=== PATIENT | male | born 1995 | race Hispanic/Latino ===

== ENCOUNTER 2024-03-19 03:04 | Emergency (ER) | payer SELFPAY ==
[2024-03-19 03:59] LABS: Absolute Basophils 0.1 K/uL (0-0.5); Absolute Lymphocytes (CBC) 0.8 K/uL (0.7-4.9); Absolute Monocytes 0.8 K/uL (0.1-1.3); Absolute Neutrophil 12.5 K/uL (1.8-8.0); Basophils % 0.4 % (0-1.3); Eosinophils % 0.1 % (0-4.4); Hematocrit 42.1 % (39.6-49.0); Hemoglobin 14.7 g/dL (13.6-17.9); MCH 27.9 pg (27.0-35.0); MCHC 34.9 g/dL (32.0-36.0); Monocytes % 5.6 % (3.3-12.3); Neutrophils % 87.9 % (41.7-73.7); Platelets 279 thou/uL (152-406); RBC Red Blood Cell Count 5.27 M/uL (4.33-5.43); Red Cell Distribution Width 13.6 % (12.1-15.2)
[2024-03-19 04:08] LABS: Specific Gravity > 1.030 (1.005-1.030); Sqamous Epithelial None Seen /HPF (None Seen); Urine Bacteria <20 /HPF (<20); Urine Bilirubin NEGATIVE (Negative); Urine Blood Trace (Negative); Urine Clarity Turbid (Clear); Urine Color Yellow (Yellow); Urine Culture Reflex Order NOT NEEDED; Urine Glucose NEGATIVE (Negative); Urine Ketones 4+ (Over) (Negative); Urine Microscopic Reflex YN ORDER UMIC; Urine Mucus 2+ /HPF (None Seen); Urine Nitrite NEGATIVE (Negative); Urine Protein 1+ (Negative); Urine RBC <5 /HPF (None Seen); Urine Urobilinogen 1+ (Normal); Urine WBC <5 /HPF (<5); Urine pH 5.5 (5.0-7.0)
[2024-03-19 04:14] LABS: Albumin/Globulin Ratio 1.2 (1.1-1.8); Anion Gap 11.4 mEq/L (5.0-15.0); Globulin 3.4 g/dL (2.3-3.5); Potassium 3.4 mEq/L (3.5-5.1); Protein, Total 7.4 g/dL (6.4-8.2)
[2024-03-19] MEDS ORDERED: ONDANSETRON 4 MG/2 ML VIAL ONE (04:20)
[2024-03-19] MEDS ORDERED: KETOROLAC 30 MG/ML INJ ONE (04:21)
[2024-03-19] MEDS ORDERED: NA CHLORIDE 0.9% 2,000 ML ONE (04:21)
[2024-03-19 05:00] LABS: Blood Morphology Comment NOT SEEN (NOT SEEN); Platelet Estimate ADEQ; White Blood Cell Scan OK (OK)
--- NOTE | 2024-03-19 07:55 | RAD REPORT ---
EXAM DESCRIPTION: US - Abdomen Exam Limited - 03/19/2024 7:12 am CLINICAL HISTORY: ABD PAIN COMPARISON: Abdomen Pelvis W Contrast dated 03/19/2024 TECHNIQUE: Sonographic grayscale and color flow images of the right upper abdominal quadrant were o btained. FINDINGS: Shadowing bowel gas somewhat limits evaluation. The gallbladder demonstrates no gallstones . No pericholecystic fluid or gallbladder wall thickening. The common bile duct is normal measuring 4 mm. The liver demonstrates no findings of intrahepatic biliary dilatation. IMPRESSION: No acute findings on right upper quadrant ultrasound.
--- NOTE | 2024-03-19 08:33 | ER ---
Nurse's Notes [facility] Name: Harry Martines Age: 29 yrs Sex: Male : 1995 Arrival Date: 03/19/2024 Time: 03:04 Bed 15 Private MD: Diagnosis: Abdominal pain, dehydration Presentation: 03/19 03:18 Chief complaint: Patient states: c/o RLQ pain since [id number] this morning. Coronavirus al5 screen: Client presents with at least one sign or symptom that may indicate coronavirus-19. Ebola Screen: No symptoms or risks identified at this time. Initial Sepsis Screen: Does the patient meet any 2 criteria? No. Patient's initial sepsis screen is negative. Does the patient have a suspected source of infection? No. Patient's initial sepsis screen is negative. Risk Assessment: Do you want to hurt yourself or someone else? Patient reports no desire to harm self or others. Onset of symptoms was March 19, 2024. 03:18 Method Of Arrival: Ambulatory al5 03:18 Acuity: ADAN 3 al5 Triage Assessment: 03:20 General: Appears in no apparent distress. uncomfortable, Behavior is calm, cooperative. al5 Pain: Complains of pain in right lower quadrant Pain radiates to abdomen diffusely Pain currently is 9 out of 10 on a pain scale. Quality of pain is described as stabbing, Pain began 1 hour ago. Is intermittent. EENT: No signs and/or symptoms were reported regarding the EENT system. Neuro: Level of Consciousness is awake, alert, obeys commands, Oriented to person, place, time, situation. Cardiovascular: Patient's skin is warm and dry. Respiratory: Airway is patent Respiratory effort is even, unlabored, Respiratory pattern is regular, symmetrical. GI: Abdomen is flat, non-distended, Reports lower abdominal pain. : Reports pain with urination. Derm: Skin is intact, Skin is pink, warm \T\ dry. normal. Musculoskeletal: No signs and/or symptoms reported regarding the musculoskeletal system. Historical: - Allergies: 03:19 No Known Allergies; al5 - PMHx: 03:19 None; al5 - PSHx: 03:19 None; al5 - Immunization history:: Adult Immunizations up to date. - Infectious Disease History:: Denies. - Social history:: Smoking status: Patient denies any tobacco usage or history of. - Family history:: not pertinent. Screenin:32 [facility] ED Fall Risk Assessment (Adult) History of falling in the last 3 months, kd4 including since admission No falls in past 3 months (0 pts) Confusion or Disorientation No (0 pts) Intoxicated or Sedated No (0 pts) Impaired Gait No (0 pts) Mobility Assist Device Used No (0 pt) Altered Elimination No (0 pt) Score/Fall Risk Level 0 - 2 = Low Risk Oriented to surroundings. Abuse screen: Denies threats or abuse. Nutritional screening: No deficits noted. Tuberculosis screening: No symptoms or risk factors identified. Assessment: 03:32 Pain: Complains of pain in abdomen Pain currently is 9 out of 10 on a pain scale. kd4 Neuro: No deficits noted. Respiratory: No deficits noted. Denies shortness of breath labored breathing. : Reports burning with urination, since 1 WEEK. 07:06 General: Report given to PARESH Evans . Patient went to [employer] for [employer]. kd4 07:15 General: Appears in no apparent distress. comfortable, well groomed, well developed, kc6 Behavior is calm, cooperative, appropriate for age. Pain: Denies pain. Neuro: Level of Consciousness is awake, alert, obeys commands, Oriented to person, place, time, situation, Appropriate for age. Cardiovascular: Capillary refill < 3 seconds. Respiratory: Airway is patent Trachea midline Respiratory effort is even, unlabored, Respiratory pattern is regular, symmetrical. GI: Abdomen is flat, non-distended, Bowel sounds present X 4 quads. Abd is soft X 4 quads Abdomen is tender to palpation in right lower quadrant Reports lower abdominal pain, Patient currently denies diarrhea, nausea, vomiting. : No signs and/or symptoms were reported regarding the genitourinary system. Urine is cloudy, Reports burning with urination. EENT: No signs and/or symptoms were reported regarding the EENT system. Derm: No signs and/or symptoms reported regarding the dermatologic system. Skin is intact, is healthy with good turgor, Skin is pink, warm \T\ dry. Musculoskeletal: No signs and/or symptoms reported regarding the musculoskeletal system. Circulation, motion, and sensation intact. Capillary refill < 3 seconds, Range of motion: intact in all extremities. 08:13 Reassessment: Patient appears in no apparent distress at this time. No changes from kc6 previously documented assessment. Patient and/or family updated on plan of care and expected duration. Pain level reassessed. Patient is alert, oriented x 3, equal unlabored respirations, skin warm/dry/pink. Vital Signs: 03:18 BP 124 / 73; Pulse 82; Resp 16; Temp 97.8; Pulse Ox 97% on R/A; Weight 95.25 kg; Height al5 5 ft. 10 in. ; Pain 9/10; 05:59 Pulse 74; Resp 18; Temp 98.4(O); Pulse Ox 100% on R/A; Pain 3/10; kd4 06:09 BP 104 / 55; kd4 07:40 BP 103 / 64; Pulse 70; Resp 16 S; Pulse Ox 98% on R/A; kc6 03:18 Body Mass Index 30.13 (95.25 kg, 177.8 cm) al5 03:18 Pain Scale: Adult al5 05:59 Pain Scale: Adult kd4 [place] Coma Score: 03:32 Eye Response: spontaneous(4). Motor Response: obeys commands(6). Verbal Response: kd4 oriented(5). Total: 15. 07:13 Eye Response: spontaneous(4). Motor Response: obeys commands(6). Verbal Response: sp4 oriented(5). Total: 15. ED Course: 03:07 Patient arrived in ED. jj6 03:15 Mary Ann Valentine RN is Primary Nurse. kd4 03:18 Juno Mata MD is Attending Physician. al5 03:19 Triage completed. al5 03:22 Arm band placed on right wrist. Patient placed in the treatment room, on a stretcher. al5 03:32 Patient has correct armband on for positive identification. Bed in low position. Call kd4 light in reach. 03:53 Initial lab(s) drawn, by me, sent to lab. Urine collected: clean catch specimen. kd4 Inserted saline lock: 20 gauge in right antecubital area, using aseptic technique. 04:49 CT Abd/Pelvis - IV Contrast Only In Process Unspecified. EDMS 07:00 Report received from Mary Ann Valentine RN. kc6 07:00 Pulse ox on. NIBP on. Door closed. Noise minimized. Lights dimmed. Warm blanket given. kc6 Pillow given. 07:05 Attending Physician role handed off by Juno Mata MD sp3 07:05 Ray Scott MD is Attending Physician. sp3 07:14 Abdomen Limited In Process Unspecified. EDMS 08:40 No provider procedures requiring assistance completed. IV discontinued, intact, kc6 bleeding controlled, No redness/swelling at site. Pressure dressing applied. Administered Medications: 04:26 Drug: Ketorolac IVP 30 mg IVP once Route: IVP; Site: right antecubital; kd4 04:39 Follow up: Response: No adverse reaction kd4 04:26 Drug: Ondansetron IVP 4 mg IVP once; over 2 minutes Route: IVP; Site: right antecubital;kd4 04:38 Follow up: Response: No adverse reaction kd4 04:26 Drug: NS 0.9% IV 1000 ml IV at 1 bolus Per protocol; 1000 mL bolus Route: IV; Rate: 1 kd4 bolus; Site: right antecubital; 08:14 Follow up: Response: No adverse reaction; IV Status: Completed infusion; IV Intake: kc6 1000ml 04:38 Drug: NS 0.9% IV 1000 ml IV at 125 ml/hr continuous Route: IV; Rate: 125 ml/hr; Site: kd4 right antecubital; Medication: 03:32 VIS not applicable for this client. kd4 Intake: 08:14 IV: 1000ml; Total: 1000ml. kc6 Outcome: 08:32 Discharge ordered by . sp3 08:40 Discharged to home ambulatory, kc6 08:40 Condition: good 08:40 Discharge instructions given to patient, Instructed on discharge instructions, follow up and referral plans. medication usage, Demonstrated understanding of instructions, follow-up care, medications, Prescriptions given X 1, 08:41 Patient left the ED. kc6 Signatures: Dispatcher [employer] EDNC Ray Scott MD MD sp3 Ladonna Lepe6 Kimber Bravo RN RN kc6 Juno Mata MD MD sp4 Mary Ann Valentine RN RN kd4 Katerine Ortez RN RN al5 Corrections: (The following items were deleted from the chart) 03:20 03:19 PSHx: Unable to Obtain; al5 al5 03: 03:20 General: Appears in no apparent distress. uncomfortable, Behavior is calm, al5 cooperative, al5 03: 03:20 Pain: Complains of pain in right lower quadrant Pain radiates to abdomen al5 diffusely Pain currently is 6 out of 10 on a pain scale. al5
--- NOTE | 2024-03-19 08:33 | EDPHYS ---
Physician Documentation [facility] Name: Harry Martines Age: 29 yrs Sex: Male : 1995 Arrival Date: 03/19/2024 Time: 03:04 Bed 15 Private MD: ED Physician Ray Scott HPI: 03/19 03:32 This 29 yrs old Male presents to ER via Ambulatory with complaints of sp4 Abdominal Pain. 07:13 29-year-old male presents with acute onset of the right flank and right abdominal pain sp4 associated with nausea.. Historical: - Allergies: 03:19 No Known Allergies; al5 - PMHx: 03:19 None; al5 - PSHx: 03:19 None; al5 - Immunization history:: Adult Immunizations up to date. - Infectious Disease History:: Denies. - Social history:: Smoking status: Patient denies any tobacco usage or history of. - Family history:: not pertinent. ROS: 07:13 Constitutional: Negative for fever, chills, and weight loss, positive right flank pain sp4 the right abdominal pain 07:13 All other systems are negative, Exam: 07:13 Constitutional: This is a well developed, well nourished patient who is awake, alert, sp4 and in no acute distress. Head/Face: Normocephalic, atraumatic. Eyes: Pupils equal round and reactive to light, extra-ocular motions intact. Lids and lashes normal. Conjunctiva and sclera are not injected. Cornea within normal limits. Periorbital areas with no swelling, redness, or edema. ENT: Nares patent. No nasal discharge, no septal abnormalities noted. Tympanic membranes are normal and external auditory canals are clear. Oropharynx with no redness, swelling, or masses, exudates, or evidence of obstruction, uvula midline. Mucous membranes moist. Neck: Trachea midline, no thyromegaly or masses palpated, and no cervical lymphadenopathy. Supple, full range of motion without nuchal rigidity, or vertebral point tenderness. Chest/axilla: Normal chest wall appearance and motion. Nontender with no deformity. No lesions are appreciated. Cardiovascular: Regular rate and rhythm with a normal S1 and S2. No gallops, murmurs, or rubs. Normal PMI, no JVD. No pulse deficits. Respiratory: Lungs have equal breath sounds bilaterally, clear to auscultation and percussion. No rales, rhonchi or wheezes noted. No increased work of breathing, no retractions or nasal flaring. Abdomen/GI: Soft, with normal bowel sounds. No distension or tympany. No guarding or rebound. No evidence of tenderness throughout. Back: No spinal tenderness. No costovertebral tenderness. Skin: Warm, dry with normal turgor. Normal color with no rashes, no lesions, and no evidence of cellulitis. MS/ Extremity: Pulses equal, no cyanosis. Neurovascular intact. Full, normal range of motion. Neuro: Awake and alert, GCS 15, oriented to person, place, time, and situation. Cranial nerves II-XII grossly intact. Motor strength 5/5 in all extremities. Sensory grossly intact. Psych: Awake, alert, with orientation to person, place and time. Behavior, mood, and affect are within normal limits Vital Signs: 03:18 BP 124 / 73; Pulse 82; Resp 16; Temp 97.8; Pulse Ox 97% on R/A; Weight 95.25 kg; Height al5 5 ft. 10 in. ; Pain 9/10; 05:59 Pulse 74; Resp 18; Temp 98.4(O); Pulse Ox 100% on R/A; Pain 3/10; kd4 06:09 BP 104 / 55; kd4 07:40 BP 103 / 64; Pulse 70; Resp 16 S; Pulse Ox 98% on R/A; kc6 03:18 Body Mass Index 30.13 (95.25 kg, 177.8 cm) al5 03:18 Pain Scale: Adult al5 05:59 Pain Scale: Adult kd4 [place] Coma Score: 03:32 Eye Response: spontaneous(4). Motor Response: obeys commands(6). Verbal Response: kd4 oriented(5). Total: 15. 07:13 Eye Response: spontaneous(4). Motor Response: obeys commands(6). Verbal Response: sp4 oriented(5). Total: 15. MDM: 03:19 Patient medically screened. sp4 06:45 ED course: CLINICAL HISTORY: Abdominal pain. COMPARISON: None. TECHNIQUE: CTABDOMEN sp4 PELVIS WITH IV CONTRAST on 03/19/2024 4:10 AM CDT This exam was performed according to our departmental dose-optimization program, which includes automated exposure control, adjustment of the mA and/or kV according to patient size and/or use of iterative reconstruction technique. FINDINGS: Lower lungs are clear. Abdomen: The liver is normal in appearance. There is no biliary dilatation. Gallbladder is normal in appearance. The pancreas and spleen are normal in appearance. There is an indeterminate left adrenal nodule measuring 11 mm. Right adrenal gland and both kidneys are normal. Abdominal aorta is normal in course and caliber without aneurysm. There is no free air. There is no retroperitoneal adenopathy. Pelvis: There is no bowel obstruction. Urinary bladder is unremarkable. There is no free fluid. Appendix is normal. Skeleton: There are no acute osseous findings. No suspicious bony lesions. IMPRESSION: No acute process. Indeterminate but likely benign left adrenal nodule. Consider nonemergent MRI.. 06:52 ED course: CLINICAL HISTORY: Abdominal pain. COMPARISON: None. TECHNIQUE: CTABDOMEN sp4 PELVIS WITH IV CONTRAST on 03/19/2024 4:10 AM CDT This exam was performed according to our departmental dose-optimization program, which includes automated exposure control, adjustment of the mA and/or kV according to patient size and/or use of iterative reconstruction technique. FINDINGS: Lower lungs are clear. Abdomen: The liver is normal in appearance. There is no biliary dilatation. Gallbladder is normal in appearance. The pancreas and spleen are normal in appearance. There is an indeterminate left adrenal nodule measuring 11 mm. Right adrenal gland and both kidneys are normal. Abdominal aorta is normal in course and caliber without aneurysm. There is no free air. There is no retroperitoneal adenopathy. Pelvis: There is no bowel obstruction. Urinary bladder is unremarkable. There is no free fluid. Appendix is normal. Skeleton: There are no acute osseous findings. No suspicious bony lesions. IMPRESSION: No acute process. Indeterminate but likely benign left adrenal nodule. Consider nonemergent MRI. . 07:13 Differential diagnosis: appendicitis, Cholelithiasis, diverticulitis, gastritis. Data sp4 reviewed: vital signs, nurses notes, lab test result(s), radiologic studies, CT scan. Consideration of Admission/Observation Escalation of care including admission/observation considered. 07:17 Transition of care: After a detail discussion of the patient's case, care is sp4 transferred to Ray Scott MD. 07:57 ED course: Patient signed out to me by nighttime physician. Patient is a 29-year-old sp3 male with no past medical history presents with right-sided abdominal pain. Laboratory values demonstrate mild increase in LFTs without increase in bilirubin or lipase. CT scan of the abdomen demonstrates no significant abnormality. Ultrasound is pending for right upper quadrant. If workup negative, we will safely discharge patient home. Patient was also dehydrated with 4+ ketones and potassium 3.4. Patient had received 2 L of normal saline and now feels significantly better. Vital signs continue to be normal.. 08:30 ED course: Ultrasound also negative at this time. Patient's vital signs remain normal. sp3 We will safely discharge home at this time. 03/19 03:32 Order name: CBC with Diff; Complete Time: 06:45 sp4 03/19 03:32 Order name: CMP; Complete Time: 06:45 sp4 03/19 03:32 Order name: Lipase; Complete Time: 06:45 sp4 03/19 03:32 Order name: Urinalysis w/ reflexes; Complete Time: 04:11 sp4 03/19 05:01 Order name: CBC Smear Scan; Complete Time: 06:45 EDMS 03/19 04:10 Order name: CT Abd/Pelvis - IV Contrast Only sp4 03/19 06:52 Order name: US Abdomen Limited; Complete Time: 08:30 sp4 03/19 03:32 Order name: IV Saline Lock; Complete Time: 03:53 sp4 03/19 03:32 Order name: Labs collected and sent; Complete Time: 03:53 sp4 Administered Medications: 04:26 Drug: Ketorolac IVP 30 mg IVP once Route: IVP; Site: right antecubital; kd4 04:39 Follow up: Response: No adverse reaction kd4 04:26 Drug: Ondansetron IVP 4 mg IVP once; over 2 minutes Route: IVP; Site: right antecubital;kd4 04:38 Follow up: Response: No adverse reaction kd4 04:26 Drug: NS 0.9% IV 1000 ml IV at 1 bolus Per protocol; 1000 mL bolus Route: IV; Rate: 1 kd4 bolus; Site: right antecubital; 08:14 Follow up: Response: No adverse reaction; IV Status: Completed infusion; IV Intake: kc6 1000ml 04:38 Drug: NS 0.9% IV 1000 ml IV at 125 ml/hr continuous Route: IV; Rate: 125 ml/hr; Site: kd4 right antecubital; Disposition Summary: 03/19/24 08:32 Discharge Ordered Notes: Location: Home sp3 Condition: Stable sp3 Diagnosis - Abdominal pain, dehydration sp3 Followup: sp3 - With: Private Physician - When: Upon discharge from the Emergency Department - Reason: Continuance of care Discharge Instructions: - Discharge Summary Sheet sp3 - Abdominal Pain, Adult sp3 - Dehydration, Adult sp3 Forms: - Medication Reconciliation Form sp3 - Antibiotic Education sp3 - Prescription Opioid Use sp3 - Patient Portal Instructions sp3 - Leadership Thank You Letter sp3 - Work release form kc6 Prescriptions: - Tramadol 50 mg Oral Tablet - take 1 tablet ORAL route every 8 hours as needed; 12 tablet; Refills: 0, sp3 Product Selection Permitted Signatures: Dispatcher [employer] EDRay Winkler MD MD sp3 Juno Mata MD MD sp4 Mary Ann Valentine RN RN kd4 Katerine Ortez RN RN al5 Kimber Bravo RN kc6 Corrections: (The following items were deleted from the chart) 03:20 03:19 PSHx: Unable to Obtain; francisca espinosa
[2024-03-19 09:02] VITALS: TEMP 98.4
[2024-03-19 09:05] VITALS: BP 103/64; O2SAT 98
--- NOTE | 2024-03-19 19:33 | RAD REPORT ---
EXAM DESCRIPTION: CT - Abdomen Pelvis W Contrast - 03/19/2024 4:47 am CLINICAL HISTORY: Abdominal pain. COMPARISON: None. TECHNIQUE: CT ABDOMEN PELVIS WITH IV CONTRAST on 03/19/2024 4:10 AM CDT This exam was performed according to our departmental dose-optimization program, which includes autom ated exposure control, adjustment of the mA and/or kV according to patient size and/or use of iterati ve reconstruction technique. FINDINGS: Lower lungs are clear. Abdomen: The liver is normal in appearance. There is no biliary dilatation. Gallbladder is normal in appearance. The pancreas and spleen are normal in appearance. There is an indeterminate left adrenal nodule measuring 11 mm. Right adrenal gland and both kidneys are normal. Abdominal aorta is normal in course and caliber without aneurysm. There is no free air. There is no r etroperitoneal adenopathy. Pelvis: There is no bowel obstruction. Urinary bladder is unremarkable. There is no free fluid. Appen angeles is normal. Skeleton: There are no acute osseous findings. No suspicious bony lesions. IMPRESSION: No acute process. Indeterminate but likely benign left adrenal nodule. Consider nonemergent MRI. Electronically signed by: Hung Hayes MD 03/19/2024 06:41 AM CDT RP Due to temporary technical issues with the PACS/Fluency reporting system, reports are being signed by the in house radiologists without review as a courtesy to insure prompt reporting. The interpreting radiologist is fully responsible for the content of the report.
== END 2024-03-19 08:41 | disposition home or self-care (01) ==
LOC: ER 03:04
DX: R10.31 Right lower quadrant pain (principal); E86.0 Dehydration; R11.0 Nausea; Z11.52 Encounter for screening for COVID-19
CPT/HCPCS: 36415; 74177; 76705; 80053; 81001; 83690; 85025; J2405; J7030; Q9967

== ENCOUNTER 2024-03-19 16:26 | Inpatient (IN) | payer SELFPAY ==
[2024-03-19] MEDS ORDERED: NA CHLORIDE 0.9% 1,000 ML ONE (16:45)
[2024-03-19] MEDS ORDERED: ONDANSETRON 4 MG/2 ML VIAL ONE ×2 (16:45→20:28)
[2024-03-19 17:03] LABS: Absolute Lymphocytes (CBC) 0.6 K/uL (0.7-4.9); Absolute Monocytes 1.3 K/uL (0.1-1.3); Absolute Neutrophil 15.5 K/uL (1.8-8.0); Basophils % 0.1 % (0-1.3); Hematocrit 41.1 % (39.6-49.0); Hemoglobin 14.3 g/dL (13.6-17.9); Lymphocytes % 3.2 % (15.3-44.8); MCH 28.2 pg (27.0-35.0); MCHC 34.9 g/dL (32.0-36.0); MCV 80.9 fL (80-100); MPV 7.5 fL (7.6-11.3); Monocytes % 7.4 % (3.3-12.3); Neutrophils % 89.3 % (41.7-73.7); Nucleated Red Blood Cells % 0.1 % (0-0); Platelets 302 thou/uL (152-406); RBC Red Blood Cell Count 5.08 M/uL (4.33-5.43); Red Cell Distribution Width 13.2 % (12.1-15.2)
[2024-03-19 17:21] LABS: Albumin 3.7 g/dL (3.4-5.0); Anion Gap 12.3 mEq/L (5.0-15.0); Bilirubin Total 1.1 mg/dL (0.2-1.0); Globulin 3.6 g/dL (2.3-3.5); Potassium 3.3 mEq/L (3.5-5.1); Protein, Total 7.3 g/dL (6.4-8.2)
[2024-03-19 17:35] LABS: SARS-CoV-2 Antigen CONTROL BLUE LINE VIS/BG OK; SARS-CoV-2 Antigen Rapid Res Negative (Negative)
--- NOTE | 2024-03-19 17:43 | RAD REPORT ---
EXAM DESCRIPTION: CT - Stone Protocol - 03/19/2024 5:17 pm CLINICAL HISTORY: Abdominal pain. Right flank pain COMPARISON: March 19, 2024 TECHNIQUE: Computed axial tomography of the abdomen pelvis was obtained without oral or IV contrast. Lack of IV and oral contrast limits evaluation of solid organs, appendix, bowel, and vessels. Lozano l reformatted images were obtained and reviewed. All CT scans are performed using dose optimization technique as appropriate and may include automated exposure control or mA/KV adjustment according to patient size. FINDINGS: A renal calculus is not seen. An ureteral calculus is not noted. A bladder calculus is not present. The liver, spleen, pancreas and right adrenal gland are unremarkable 12 millimeter left adrenal nodule. Hounsfield unit 6. This is compatible with an adenoma. No follow-u p imaging recommended There is no evidence of diverticulitis. The appendix is mildly enlarged with mild stranding in adjacent fat. It contains a couple ol appendic oliths. No abscess. No free air The appendix extends inferiorly from cecum. IMPRESSION: Appendicitis
[2024-03-19 17:55] LABS: Sqamous Epithelial None Seen /HPF (None Seen); Urine Bacteria None Seen /HPF (<20); Urine Bilirubin NEGATIVE (Negative); Urine Blood Negative (Negative); Urine Clarity Clear (Clear); Urine Color Yellow (Yellow); Urine Culture Reflex Order NOT NEEDED; Urine Glucose NEGATIVE (Negative); Urine Ketones NEGATIVE (Negative); Urine Microscopic Reflex YN ORDER UMIC; Urine Mucus Slight /HPF (None Seen); Urine Nitrite NEGATIVE (Negative); Urine Protein TRACE (Negative); Urine RBC <5 /HPF (None Seen); Urine Urobilinogen 2+ (Normal); Urine WBC <5 /HPF (<5); Urine pH 6.5 (5.0-7.0)
--- NOTE | 2024-03-19 17:58 | EDPHYS ---
Physician Documentation [facility] Name: Harry Martines Age: 29 yrs Sex: Male : 1995 Arrival Date: 03/19/2024 Time: 16:26 Bed 20 Private MD: ED Physician Efrain Chavez HPI: 03/19 16:36 This 29 yrs old Male presents to ER via Ambulatory with complaints of Fever - kb Side pain. 16:36 Pt is a 29 year old male who presents for dysuria for 2-3 weeks and right flank/abd kb pain that started at 0300 today. Reports nausea and subjective fever. Denies vomiting, diarrhea. No aggravating or alleviating factors. Historical: - Allergies: 16:35 No Known Allergies; dd2 - Home Meds: 16:35 None [Active]; dd2 - PMHx: 16:35 None; dd2 - PSHx: 16:35 None; dd2 - Immunization history:: Adult Immunizations unknown. - Infectious Disease History:: Denies. - Social history:: Smoking status: Patient denies any tobacco usage or history of. ROS: 16:36 Constitutional: As per HPI kb Exam: 16:36 Constitutional: This is a well developed, well nourished patient who is awake, alert, kb and in no acute distress. Head/Face: Normocephalic, atraumatic. ENT: Moist Mucous membranes Cardiovascular: Regular rate Respiratory: Respirations even and unlabored. No increased work of breathing. Talking in full sentences Back: No spinal tenderness. No costovertebral tenderness. Full range of motion. Skin: Warm, dry with normal turgor. Normal color. MS/ Extremity: Pulses equal, no cyanosis. Neurovascular intact. Full, normal range of motion. Neuro: Awake and alert, GCS 15, oriented to person, place, time, and situation. Moves all extremities. Normal gait. 16:36 Abdomen/GI: Inspection: abdomen appears normal, Bowel sounds: normal, Palpation: soft, in all quadrants, mild abdominal tenderness, in the anterior aspect of right lateral abdomen and right lower quadrant, Vital Signs: 16:32 BP 115 / 69; Pulse 131; Resp 17; Temp 99; Pulse Ox 97% ; Weight 96.16 kg; Height 5 ft. dd2 10 in. ; 17:00 BP 129 / 73; Pulse 100; Resp 18; Pulse Ox 98% on R/A; ph 18:00 BP 114 / 76; Pulse 97; Resp 18; Temp 98.9; Pulse Ox 99% on R/A; ph 16:32 Body Mass Index 30.42 (96.16 kg, 177.8 cm) dd2 MDM: 16:30 Patient medically screened. kb 16:37 Data reviewed: vital signs, nurses notes. kb 17:52 Management of patient was discussed with the following: Celso michelle. kb 18:00 Differential diagnosis: cholelithiasis, kidney stone, UTI, pyelonephritis, kb appendicitis. Consideration of Admission/Observation Patient was admitted/placed on observation. Escalation of care including admission/observation considered. Management of patient was discussed with the following: Child Care Director: Dr Houston accepts pt for admission. Will take to OR now. Keep NPO, start antibiotics and call out OR crew. Automatic Winder Operator notified to call out crew. External Records Reviewed: ED record from this morning reviewed. Counseling: I had a detailed discussion with the patient and/or guardian regarding the historical points, exam findings, and any diagnostic results supporting the discharge/admit diagnosis, lab results, radiology results, the need for further work-up and treatment in the hospital. 03/19 16:33 Order name: CBC with Diff kb 03/19 16:33 Order name: CMP; Complete Time: 17:26 kb 03/19 16:33 Order name: Lipase; Complete Time: 17:26 kb 03/19 16:33 Order name: Urinalysis w/ reflexes; Complete Time: 17:56 kb 03/19 16:34 Order name: SARS-COV-2 Antigen Rapid; Complete Time: 17:38 kb 03/19 17:09 Order name: CBC Smear Scan EDMS 03/19 17:56 Order name: Blood Culture Adult (2) kb 03/19 17:56 Order name: Lactate w/ 2H reflex if indic.; Complete Time: 19:07 kb 03/19 17:56 Order name: Protime (+inr); Complete Time: 18:51 kb 03/19 17:56 Order name: Ptt, Activated; Complete Time: 18:51 kb 03/19 16:34 Order name: CT Stone Protocol; Complete Time: 17:44 kb 03/19 16:33 Order name: IV Saline Lock; Complete Time: 17:00 kb 03/19 16:33 Order name: Labs collected and sent; Complete Time: 17:00 kb 03/19 17:56 Order name: EKG - Nurse/Tech; Complete Time: 18:50 kb Administered Medications: 17:00 Drug: NS 0.9% IV 1000 ml IV at 1 bolus Per protocol; 1000 mL bolus Route: IV; Rate: 1 ph bolus; Site: right antecubital; 18:30 Follow up: Response: No adverse reaction; IV Status: Completed infusion; IV Intake: ph 1000ml 17:01 Drug: Ondansetron IVP 4 mg IVP once; over 2 minutes Route: IVP; Site: right antecubital;ph 18:50 Follow up: Response: No adverse reaction ph 18:41 Drug: Piperacillin-Tazobactam IVPB 3.375 grams IVPB once over 60 mins; (mix in NS 100 ph mL), administer after blood cultures obtained Route: IVPB; Infused Over: 60 mins; Site: right antecubital; 18:50 Follow up: Response: No adverse reaction; IV Status: Infusion continued upon admission ph Disposition Summary: 03/19/24 17:57 Hospitalization Ordered Notes: Hospitalization Status: Observation kb Provider: Lizandro Houston Location: Telemetry/MedSurg (observation) kb Condition: Stable kb Problem: new kb Symptoms: are unchanged kb Bed/Room Type: Standard Room Assignment: 210(03/19/24 18:25) bd Diagnosis - Unspecified acute appendicitis kb Forms: - Medication Reconciliation Form kb - SBAR form kb - Leadership Thank You Letter kb Signatures: Dispatcher [employer] EDAidee Nice FNP-Geneva HAYSP-Allyson Chavez Patricia, RN RN ph SANDRA TRAN, RN RN dd2 Corrections: (The following items were deleted from the chart) 16:35 16:35 SARS-COV-2 Antigen Rapid+I.LAB.BRZ ordered. EDMS EDMS 17:56 17:56 BLOOD CULTURE*+BA.LAB.BRZ ordered. EDMS EDMS 17:56 17:56 LACTATE+C.LAB.BRZ ordered. EDMS EDMS 17:56 17:56 PROTIME (+INR)+COAG.LAB.BRZ ordered. EDMS EDMS 17:56 17:56 PTT, ACTIVATED+COAG.JAZ.BRZ ordered. EDMS EDMS 18:25 17:57 kb bd
--- NOTE | 2024-03-19 17:58 | ER ---
Nurse's Notes [facility] Name: Harry Martines Age: 29 yrs Sex: Male : 1995 Arrival Date: 03/19/2024 Time: 16:26 Bed 20 Private MD: Diagnosis: Unspecified acute appendicitis Presentation: 03/19 16:32 Chief complaint: Patient states: Pt states burning and painful urination 2-3 weeks, dd2 abdominal and rt flank pain x1 day with nausea. Coronavirus screen: At this time, the client does not indicate any symptoms associated with coronavirus-19. Ebola Screen: No symptoms or risks identified at this time. Initial Sepsis Screen: Does the patient meet any 2 criteria? No. Patient's initial sepsis screen is negative. Does the patient have a suspected source of infection? No. Patient's initial sepsis screen is negative. Risk Assessment: Do you want to hurt yourself or someone else? Patient reports no desire to harm self or others. Onset of symptoms is unknown. 16:32 Method Of Arrival: Ambulatory dd2 16:32 Acuity: ADAN 3 dd2 Triage Assessment: 16:35 General: Appears uncomfortable, ill, Behavior is calm, cooperative. Pain: Complains of dd2 pain in anterior aspect of right lateral abdomen and abdomen. Historical: - Allergies: 16:35 No Known Allergies; dd2 - Home Meds: 16:35 None [Active]; dd2 - PMHx: 16:35 None; dd2 - PSHx: 16:35 None; dd2 - Immunization history:: Adult Immunizations unknown. - Infectious Disease History:: Denies. - Social history:: Smoking status: Patient denies any tobacco usage or history of. Screenin:[facility] ED Fall Risk Assessment (Adult) History of falling in the last 3 months, ph including since admission No falls in past 3 months (0 pts) Confusion or Disorientation No (0 pts) Intoxicated or Sedated No (0 pts) Impaired Gait No (0 pts) Mobility Assist Device Used No (0 pt) Altered Elimination No (0 pt) Score/Fall Risk Level 0 - 2 = Low Risk Oriented to surroundings, Maintained a safe environment, Hourly rounding (assess needs \T\ fall precautionary measures) done. Abuse screen: Denies threats or abuse. Denies injuries from another. Nutritional screening: No deficits noted. Tuberculosis screening: No symptoms or risk factors identified. Assessment: 16:59 General: Appears in no apparent distress. Behavior is calm, cooperative. Pain: ph Complains of pain in epigastric area and anterior aspect of right lateral abdomen. Neuro: Level of Consciousness is awake, alert, obeys commands, Oriented to person, place, time, situation. Cardiovascular: Capillary refill < 3 seconds in bilateral fingers Patient's skin is warm and dry. Respiratory: Airway is patent Respiratory effort is even, unlabored, Respiratory pattern is regular, symmetrical. GI: Reports lower abdominal pain, upper abdominal pain, nausea. Derm: Skin is pink, warm \T\ dry. Vital Signs: 16:32 BP 115 / 69; Pulse 131; Resp 17; Temp 99; Pulse Ox 97% ; Weight 96.16 kg; Height 5 ft. dd2 10 in. ; 17:00 BP 129 / 73; Pulse 100; Resp 18; Pulse Ox 98% on R/A; ph 18:00 BP 114 / 76; Pulse 97; Resp 18; Temp 98.9; Pulse Ox 99% on R/A; ph 16:32 Body Mass Index 30.42 (96.16 kg, 177.8 cm) dd2 ED Course: 16:29 Patient arrived in ED. ra3 16:29 [facility] Latham [facility] kb 16:29 Efrain Chavez MD is Attending Physician. kb 16:35 Triage completed. dd2 16:35 Arm band placed on right wrist. Patient placed in an exam room, on a stretcher, on dd2 pulse oximetry. 16:43 Amber Joe, PARESH is Primary Nurse. ph 16:58 Initial lab(s) drawn, by ms, sent to lab. Urine collected: clean catch specimen, roula ph colored, COVID swab sent to lab. Inserted saline lock: 20 gauge in right antecubital area, using aseptic technique. Blood collected. Flushed with 10 mL NS. 17:00 Patient has correct armband on for positive identification. Bed in low position. Call ph light in reach. Side rails up X 1. Pulse ox on. NIBP on. Door closed. Noise minimized. 17:00 SARS-COV-2 Antigen Rapid Sent. ph 17:00 CBC with Diff Sent. ph 17:00 CMP Sent. ph 17:00 Lipase Sent. ph 17:00 Urinalysis w/ reflexes Sent. ph 17:19 CT Stone Protocol In Process Unspecified. EDMS 17:57 Lizandro Houston MD is Hospitalizing Provider. kb 18:49 No provider procedures requiring assistance completed. Patient admitted, IV remains in ph place. Administered Medications: 17:00 Drug: NS 0.9% IV 1000 ml IV at 1 bolus Per protocol; 1000 mL bolus Route: IV; Rate: 1 ph bolus; Site: right antecubital; 18:30 Follow up: Response: No adverse reaction; IV Status: Completed infusion; IV Intake: ph 1000ml 17:01 Drug: Ondansetron IVP 4 mg IVP once; over 2 minutes Route: IVP; Site: right antecubital;ph 18:50 Follow up: Response: No adverse reaction ph 18:41 Drug: Piperacillin-Tazobactam IVPB 3.375 grams IVPB once over 60 mins; (mix in NS 100 ph mL), administer after blood cultures obtained Route: IVPB; Infused Over: 60 mins; Site: right antecubital; 18:50 Follow up: Response: No adverse reaction; IV Status: Infusion continued upon admission ph Medication: 17:00 VIS not applicable for this client. ph Intake: 18:30 IV: 1000ml; Total: 1000ml. ph Outcome: 17:57 Decision to Hospitalize by Provider. kb 19:19 Patient left the ED. [id number] Signatures: Dispatcher [employer] EDWA Aidee Latham, SHARON WARD-Amber Mills RN RN ph Reddick, Jess jr12 Denise Haas ra3 SANDRA TRAN RN RN dd2
[2024-03-19] MEDS ORDERED: NA CHLORIDE 0.9% 100 ML ONE (18:29)
[2024-03-19] MEDS ORDERED: PIPERACIL/TAZO 3.375 GM VIAL IV ONE (18:30)
[2024-03-19 18:49] LABS: PTT, Activated Partial Thromb 30.2 SECONDS (24.3-36.9); Protime INR 1.35
[2024-03-19] MEDS: BUPIVACAINE 0.5% PF 10 ML VIAL ONE (18:58)
[2024-03-19 19:09] LABS: Blood Morphology Comment NOT SEEN (NOT SEEN); Platelet Estimate ADEQ; White Blood Cell Scan OK (OK)
[2024-03-19] MEDS: Ringers Lactate 1,000 ML IV ONE ×2 (19:20→20:45)
[2024-03-19] MEDS ORDERED: SUCCINYLCHOLINE 20 MG/ML (10 ML) IV ONE (19:23)
[2024-03-19] MEDS ORDERED: propofoL 200 MG/20 ML VIAL IV ONE (19:30)
[2024-03-19] MEDS ORDERED: FENTANYL CITR 250 MCG/5 ML ONE (19:30)
[2024-03-19] MEDS ORDERED: ROCURONIUM 50 MG/5 ML VIAL IV ONE (19:31)
[2024-03-19] MEDS ORDERED: MIDAZOLAM HCL 2 MG/2 ML INJ ONE (19:31)
--- NOTE | 2024-03-19 19:35 | P.HP ---
Date of Service: 03/19/24 Chief complaint: Abdominal pain History of present Illness: Patient is a 29-year-old gentleman comes in with acute onset of right sided abdominal pain starting 3:00 this morning. Patient denies any vomiting but he does have nausea. Pain is worse with movement. Patient denies any diarrhea or constipation. Patient has occasional bright red blood spotting on toilet paper after BM. Patient denies any dysuria or hematuria. Patient denies any sore throat, runny nose, cough, headaches, dizziness or chest pain. Patient does have some chills and low-grade fever which has improved. Review of systems: Otherwise unremarkable Past medical history: Negative Past surgical history: Dental surgery Allergies: None Social history: Patient denies smoking or drinking alcohol Family history: Noncontributory Vital signs: Stable, afebrile Physical exam: Awake, alert and oriented x 3 Head and neck: No masses Chest: Clear Heart: S1-S2 Abdomen: Soft, nondistended, positive tenderness with rebound on the right middle and right lower quadrant. No rigidity or guarding seen. The patient does not have Rovsing's sign. Extremity: Neurovascular intact Neuro: Nonfocal Diagnostic data: Leukocytosis with left shift. Slight elevation of the AST and ALT. CT consistent with acute appendicitis. Assessment: Acute appendicitis Plan/recommendation: Admit, n.p.o., IV fluids, IV antibiotics and to the OR for laparoscopic appendectomy possible open. Patient understands risk, benefits and alternatives and agrees to procedure. CC:
[2024-03-19] MEDS ORDERED: NEOSTIGMINE 1 MG/ML -10 ML VIAL ONE (20:25)
[2024-03-19] MEDS ORDERED: GLYCOPYRROLATE 0.2 MG/ML SYR ONE ×3 (20:25→20:28)
[2024-03-19] MEDS ORDERED: Mastisol Adhesive Liq ONE (20:26)
[2024-03-19] MEDS ORDERED: dexAMETHasone 4 MG/ML VIAL ONE (20:28)
[2024-03-19] MEDS ORDERED: ONDANSETRON 4 MG/2 ML VIAL IV PRN ×2 (20:29→21:06)
--- NOTE | 2024-03-19 20:36 | P.OP ---
Date of Service: 03/19/24 Preop diagnosis: Acute appendicitis Postop diagnosis: Acute suppurative appendicitis Procedure performed: Laparoscopic appendectomy Surgeon: Lizandro Houston MD Marble Mason: None Estimated blood loss: Minimal Specimen: Appendix Findings: Acute suppurative appendicitis Anesthesia: General Complications: None Drains: None Fluids and blood products: Nonapplicable Disposition: Recovery room Operative note: Patient brought to the OR and placed in supine position. General anesthesia began. Patient prepped and draped in usual sterile fashion. Marcaine 0.5% infiltrated locally. 15 blade used to make a 1 cm supraumbilical midline incision. Subcutaneous tissue divided. Bleeding controlled cautery. Fascia identified and divided. #1 Vicryl stay suture placed. Peritoneal cavity entered with sharp and blunt dissection. 12 mm trocar placed into the peritoneal cavity under direct vision. Pneumoperitoneum established. Two 5 mm trocars placed under direct vision. 1 trocar placed in the suprapubic region and the other 1 in the left lower quadrant. Laparoscopy revealed acute suppurative appendicitis in the right lower quadrant. Mesoappendix and base of the appendix and the cecum clearly identified. LigaSure used to divide the mesoappendix. Endo KARMA stapling device used to divide the base of the appendix on the cecum. The appendix retrieved through the umbilicus via Endo Catch bag. Right lower quadrant irrigated. Effluent clear. No evidence of bleeding or bowel injury appreciated. All trocars removed under direct vision. Stay sutures tied to each other to reapproximate the fascial defect. Subcutaneous wounds irrigated and bleeding controlled cautery. 3-0 chromic used to reapproximate subcutaneous tissue. Elisabeth used to close skin. Sterile dressing applied and patient awakened. Patient taken to recovery room in good general condition. CC:
[2024-03-19] MEDS ORDERED: HYDROMORPHONE HCL 1 MG/ML INJ IV PRN ×2 (21:06→21:27)
[2024-03-19] MEDS ORDERED: HYDROCODONE/APAP 7.5/325 MG TAB PO PRN (21:06)
[2024-03-19] MEDS: Ringers Lactate 1,000 ML IV SCH (22:06)
[2024-03-20] MEDS: PIPER TAZO 3.375 GM in NA CHLORIDE 0.9% 100 ML IV SCH (00:24)
[2024-03-20 06:18] LABS: Absolute Lymphocytes (CBC) 0.6 K/uL (0.7-4.9); Absolute Monocytes 0.8 K/uL (0.1-1.3); Basophils % 0.2 % (0-1.3); Hematocrit 35.8 % (39.6-49.0); Hemoglobin 12.6 g/dL (13.6-17.9); Lymphocytes % 3.3 % (15.3-44.8); MCH 28.5 pg (27.0-35.0); MCHC 35.2 g/dL (32.0-36.0); MCV 81.1 fL (80-100); MPV 8.6 fL (7.6-11.3); Monocytes % 4.5 % (3.3-12.3); Platelets 224 thou/uL (152-406); RBC Red Blood Cell Count 4.41 M/uL (4.33-5.43); Red Cell Distribution Width 13.4 % (12.1-15.2)
[2024-03-20 06:44] LABS: Albumin 3.3 g/dL (3.4-5.0); Anion Gap 9.4 mEq/L (5.0-15.0); Bilirubin Direct 0.5 mg/dL (0-0.2); Bilirubin Total 1.5 mg/dL (0.2-1.0); Globulin 3.2 g/dL (2.3-3.5); Phosphorus 2.3 mg/dL (2.5-4.9); Potassium 4.4 mEq/L (3.5-5.1); Protein, Total 6.5 g/dL (6.4-8.2)
[2024-03-20 08:17] VITALS: O2SAT 99
[2024-03-20] MEDS: POTASS/SODIUM PHOSPHATE 1 PKT POWD.PACK PO SCH (08:24)
--- NOTE | 2024-03-20 10:29 | PN ---
Date of Progress Note: 03/20/2024 Subjective: The patient is awake, alert. Feels well, tolerating clear liquids, hungry for regular d iet. Objective: Vital Signs: Stable, afebrile. Abdomen: Soft, nondistended, nontender. Positive bowel sounds. Dressing is clean, dry, intact. Laboratory Data: White count is still 17,000. Assessment: Status post laparoscopic appendectomy for acute suppurative appendicitis. Recommendations: Continue IV antibiotics for another day at least and re-evaluate tomorrow for possi ble discharge in either 24 to 48 hours depending upon his clinical response to the IV antibiotics. T he patient is clinically stable and doing well. The patient was encouraged to ambulate and use incen tive spirometry. /MODL Voice ID: [id number] Report ID: [id number]
[2024-03-20 18:33] VITALS: BMI 27.0
[2024-03-21 06:40] LABS: Absolute Basophils 0.1 K/uL (0-0.5); Absolute Monocytes 0.9 K/uL (0.1-1.3); Absolute Neutrophil 7.3 K/uL (1.8-8.0); Basophils % 0.5 % (0-1.3); Eosinophils % 0.1 % (0-4.4); Hematocrit 35.8 % (39.6-49.0); Hemoglobin 12.6 g/dL (13.6-17.9); Lymphocytes % 19.6 % (15.3-44.8); MCH 28.7 pg (27.0-35.0); MCHC 35.1 g/dL (32.0-36.0); MCV 81.7 fL (80-100); MPV 8.3 fL (7.6-11.3); Monocytes % 8.3 % (3.3-12.3); Neutrophils % 71.5 % (41.7-73.7); Platelets 233 thou/uL (152-406); RBC Red Blood Cell Count 4.38 M/uL (4.33-5.43); Red Cell Distribution Width 13.3 % (12.1-15.2)
[2024-03-21 09:37] VITALS: BP 132/62; TEMP 97.6
--- NOTE | 2024-03-21 13:57 | DS ---
Date of Discharge: 03/21/2024 Admitting Diagnosis: Acute appendicitis. Discharge Diagnosis: Acute suppurative appendicitis. Procedure Performed: Laparoscopic appendectomy. Hospital Course: The patient is a 29-year-old gentleman who was admitted with abdominal pain. Amy p revealed acute appendicitis. The patient was taken to the operating room. Uneventful laparoscopic appendectomy was performed. Postoperatively, his white count was still elevated. He was kept an ex tra day for IV antibiotics. Today, he is tolerating diet, ambulating, pain control p.o. pain medicat ion, afebrile. White count is normal, therefore patient will be discharged home. Disposition: Home. Condition: Stable. Discharge Instructions: Resume home medications and diet. Activity as tolerated. No heavy lifting. Remove outer dressing after shower and change dressing daily with gauze or Band-Aid. Follow up in my office in 1 week. Call for appointment. Incentive spirometry as instructed and Augmentin, [place], and Colace called into the patient's pharmacy. /MODL Voice ID: [id number] Report ID: [id number]
--- NOTE | 2024-03-25 18:06 | EKG ---
Test Date: 2024-03-19 Test Time: 18:45:29 Study Hall Supervisor: BP MEASUREMENT RESULTS: Intervals: Rate: 88 WA: 156 QRSD: 84 QT: 336 QTc: 406 [place]: P: 35 WA: 156 QRS: 118 T: -4 INTERPRETIVE STATEMENTS: Normal sinus rhythm Nonspecific T wave abnormality Abnormal ECG No previous ECG available for comparison Electronically Signed On 03-25-24 17:53:40 CDT by Itz Jimenez
== END 2024-03-21 10:37 | disposition home or self-care (01) | DRG 398 ==
LOC: ER 16:26 → ERHOLD 18:05 → 2ND 18:36 → OBSVTOIN 03-20 15:54
PROVIDERS: ADMIT Surgery; ATTEND Surgery
PROC: 0DTJ4ZZ Resection of Appendix, Percutaneous Endoscopic Approach (ICD-10-PCS; principal; 2024-03-19 19:30)
DX: K35.80 Unspecified acute appendicitis (principal); I47.10 Supraventricular tachycardia, unspecified; R65.10 Systemic inflammatory response syndrome (SIRS) of non-infectious origin without acute organ dysfunction; Z11.52 Encounter for screening for COVID-19
CPT/HCPCS: 36415; 74176; 76377; 80048; 80053; 80076; 81001; 83605; 83690; 83735; 84100; 85025; 85610; 85730; 87040; 87811; 88304; 93005; 94010; 96361; 96374; 96375; 99284; G0378; J1100; J2250; J2405; J2543; J2704; J2710; J3010; J7030; J7120